=== PATIENT | male | born 1965 | race Caucasian/White ===

== ENCOUNTER 2020-08-25 21:47 | Emergency (ER) | payer SELFPAY ==
[~2020-08-25 21:47] MED LIST: Iopamidol 370 76% 125 ML VIAL FS ONE; Sodium Chloride 0.9% 100 ML BAG ONE
[2020-08-25] MEDS ORDERED: CEFAZOLIN 1 GM VIAL ONE (22:03)
[2020-08-25 22:09] LABS: #Basophils 0.1 thou/uL (0.0-0.2); #Eosinphils 0.1 thou/uL (0.0-0.7); #Lymphocytes 3.2 thou/uL (1.20-3.40); #Monocytes 0.8 thou/uL (0.11-0.59); %Basophils 0.9 % (0.0-1.0); %Eosinophils 1.1 % (0.0-10.0); %Lymphocytes 30.9 % (21.0-51.0); %Monocytes 7.9 % (0.0-10.0); %Neutrophils 59.1 % (42.0-75.0); Hemoglobin 14.7 g/dL (14.0-18.0); Mean Corpuscular HGB CONC 33.1 g/dL (32.0-36.0); Mean Corpuscular Hemoglobin 30.7 pg (27.0-31.0); Mean Corpuscular Volume 92.9 fL (78.0-98.0); Mean Platelet Volume 8.7 fL (7.4-10.4); Platelet Count 255 thou/uL (130-400); RBC Distribution Width 11.9 % (11.5-14.5); White Blood Cell (WBC) Count 10.2 thou/uL (4.8-10.8)
[2020-08-25 22:18] LABS: INR-International Normal Ratio 0.8; PTT 21.6 sec (22.9-36.1); Prothrombin Time 11.5 sec (12.0-14.7)
[2020-08-25 22:28] LABS: ALT (SGPT) 20 U/L (8-55); AST (SGOT) 14 U/L (5-34); Albumin 4.1 g/dL (3.5-5.0); Alkaline Phosphatase 99 U/L (40-110); Anion Gap 17 mmol/L (10-20); BUN (Urea Nitrogen) 13 mg/dL (8.4-25.7); Bilirubin, Total 0.4 mg/dL (0.2-1.2); Calc. Creatinine Clearance 0 mL/min (70-130); Calcium 9.4 mg/dL (7.8-10.44); Carbon Dioxide 24 mmol/L (22-29); Chloride 103 mmol/L (98-107); Globulin 2.7 g/dL (2.4-3.5); Glucose 307 mg/dL (70-105); Protein, Total 6.8 g/dL (6.0-8.3); Sodium 140 mmol/L (136-145)
[2020-08-25] MEDS ORDERED: Ondansetron PF 4 MG/2 ML Vial ONE (23:29)
[2020-08-25] MEDS ORDERED: Morphine 4 MG/ML VIAL ONE (23:29)
== END 2020-08-26 00:14 | disposition home or self-care (01) ==
LOC: MADERS 21:47
DX: S82.832A Other fracture of upper and lower end of left fibula, initial encounter for closed fracture (principal); I10 Essential (primary) hypertension; E11.9 Type 2 diabetes mellitus without complications; F17.210 Nicotine dependence, cigarettes, uncomplicated; W34.00XA Accidental discharge from unspecified firearms or gun, initial encounter
CPT/HCPCS: 29515; 80053; 85025; 85610; 85730; 96374; 96375; J0690; J2270; J2405; J3490; Q9967